=== PATIENT | male | born 1950 | race Caucasian/White ===

== ENCOUNTER 2017-01-05 09:19 | Emergency (ER) | payer OTHER ==
[2017-01-05] MEDS ORDERED: KETOROLAC 60 MG/2 ML VIAL IM STA (10:23)
[2017-01-05] MEDS ORDERED: diazePAM 5 MG TABLET PO STA (10:23)
[2017-01-05] MEDS ORDERED: LIDOCAINE PATCH 5% TOP STA (10:23)
--- NOTE | 2017-01-05 10:27 | ED Physician Documentation ---
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 and felt a tearing sensation to the R SI region and has had sig pain and dec mobility since no fever no IVDA IV/IM meds no abd pain no urinary sx no numbness or weakness tried asa s relief needed help getting dressed Review of Systems Constitutional: denies: Fever, Chills Cardiac: denies: Chest pain / pressure Respiratory: denies: Dyspnea GI: denies: Abdominal Pain : denies: Dysuria, Incontinent Musculoskeletal: reports: Back pain Neurologic: denies: Focal weakness, Numbness Immunocompromised: denies: Immunocompromised PD PAST MEDICAL HISTORY - Past Medical History Past Medical History: Yes Cardiovascular: Hypertension, High cholesterol Respiratory: None Neuro: None Endocrine/Autoimmune: None GI: None : None HEENT: None Psych: None Musculoskeletal: Chronic back pain, Other Derm: None - Past Surgical History Past Surgical History: Yes General: Colonoscopy Ortho: Other - Present Medications Home Medications: Ambulatory Orders Medication Instructions Recorded Confirmed Aspirin [Aspir 81] 81 mg PO DAILY 09/10/12 01/05/17 Simvastatin [Zocor] 20 mg PO QPM 09/10/12 01/05/17 Metoprolol Tartrate 50 mg PO BID 07/29/15 01/05/17 Lisinopril 20 mg PO DAILY 08/01/15 01/05/17 Lidocaine Patch 5% [Lidoderm Patch] 1 each TOP DAILY PRN #10 patch 01/05/17 diazePAM [Valium] 5 mg PO Q8H PRN #10 tablet 01/05/17 - Allergies Allergies/Adverse Reactions: Allergies Allergy/AdvReac Type Severity Reaction Status Date / Time acetaminophen [From Percocet] AdvReac constipatio Verified 07/30/15 01:41 n oxycodone HCl * AdvReac constipatio Verified 09/10/12 13:45 [From Percocet] n - Social History Does the pt smoke?: No Smoking Status: Never smoker Does the pt drink ETOH?: Yes Does the pt have substance abuse?: No - POLST Patient has POLST: No PD ED PE NORMAL - Vitals Vital signs reviewed: Yes - General General: Alert and oriented X 3 - Neck Neck: Supple, no meningeal sign - Cardiac Cardiac: RRR - Respiratory Respiratory: No respiratory distress, Clear bilaterally - Abdomen Abdomen: Soft, Non tender, Other (no pulsatile mass) - Back Back: No spinal TTP (nor redness warmth of focal swelling, limited ROM 2/2 and muscular spasm) - Derm Derm: Normal color - Extremities Extremities: No deformity - Neuro Neuro: No motor deficit, No sensory deficit, Other (hip flex foot dorsi pknatar and great toe ext 5/5, diff to assess knee ext 2/2 pain, no no radicular pain by hx, patellar DTR 1+/4, no clonus, denies saddle anesthesia) Results - Vitals Vitals: Vital Signs - 24 hr 01/05/17 09:26 Temperature 36.5 C Heart Rate 69 Respiratory 17 Rate Blood Pressure 166/89 H O2 Saturation 98 Oxygen O2 Source Room air Departure - Departure Disposition: 01 Home, Self Care Clinical Impression: Back pain Qualifiers: Back pain location: low back pain Chronicity: acute Back pain laterality: unspecified Sciatica presence: without sciatica Qualified Code(s): M54.5 - Low back pain Condition: Good Instructions: ED Low Back Pain Injury Follow-Up: Jose Ramon Tobias MD [Primary Care Provider] - Prescriptions: Lidocaine Patch 5% [Lidoderm Patch] 1 each TOP DAILY PRN #10 patch PRN Reason: Pain diazePAM [Valium] 5 mg PO Q8H PRN #10 tablet PRN Reason: muscle spasm Comments: The xrays show the hardware is fine. There is slight wedging of the T12 vertebrae but this is not where you hurt and is likely not new Xrays do not show herniated disks but the symptoms and exam do not suggest a herniated disk. The treatment at this time is mostly symptomatic - recommend lidocaine patches - up to 12 hr a day - for pain. And the valium to relax your muscles. If it does not bother your stomach, you could also take 200-400 mg of food with meals three times a day for the pain. Tylenol, up to 3000mg a day will help too. Please rest and avoid heavy exertion and lifting Follow up with your PMD Return if worse And please have your PMD recheck your blood pressure - it was high today
[2017-01-05] MEDS ORDERED: diazePAM 5 MG TABLET PO ONE (10:34)
[2017-01-05] MEDS ORDERED: LIDOCAINE PATCH 5% TOP ONE (10:35)
[2017-01-05] MEDS ORDERED: KETOROLAC 30 MG/ML VIAL ONE (10:35)
--- NOTE | 2017-01-05 11:41 | XRAY Preliminary Report ---
Exam: XR Lumbar Spine 2 View IMPRESSION: 1. Mild anterior wedging and superior endplate irregularity of the T12 vertebral body, suggestive of age-indeterminate fracture. No significant vertebral body loss of height. 2. L4-L5 posterior fusion hardware is in place. There is no evidence of hardware dysfunction. [facility] SITE ID: [id number]
--- NOTE | 2017-01-05 11:43 | XRAY Report ---
EXAM: LUMBOSACRAL SPINE RADIOGRAPHY EXAM DATE: 01/05/2017 10:58 AM. CLINICAL HISTORY: Back pain prior fusion assess hardware. COMPARISONS: None. TECHNIQUE: 2 views. FINDINGS: Alignment: L4-L5 fusion hardware is in place. There is an intervertebral disk spacer. Alignment is wi thin normal limits. Bones: Mineralization within normal limits. There is mild superior endplate irregularity and anterior wedging of the T12 vertebral body. Disks: Normal. Disk heights are maintained. Facets: No significant facet arthrosis. Sacroiliac Joints: Unremarkable. Soft Tissues: Normal. The visualized bowel gas pattern is normal. IMPRESSION: 1. Mild anterior wedging and superior endplate irregularity of the T12 vertebral body, suggestive of age-indeterminate fracture. No significant vertebral body loss of height. 2. L4-L5 posterior fusion hardware is in place. There is no evidence of hardware dysfunction. [facility] Referring Provider Line: [phone] SITE ID: [id number]
[2017-01-05 12:12] VITALS: BP 155/74
== END 2017-01-05 12:33 | disposition home or self-care (01) ==
LOC: ED 09:19
DX: M54.5 Low back pain (principal); Z98.1 Arthrodesis status; I10 Essential (primary) hypertension; E78.00 Pure hypercholesterolemia, unspecified; Z79.82 Long term (current) use of aspirin
CPT/HCPCS: 72100; 96372; 99283; A9270

== ENCOUNTER 2018-04-03 07:40 | Day surgery (SDC) | payer MEDICARE, OTHER ==
[2018-04-03] MEDS ORDERED: LACTATED RINGERS 1,000 ML IV ONE (08:17)
[2018-04-03 09:51] VITALS: BP 107/55
[2018-04-03] MEDS ORDERED: MIDAZOLAM 2 MG/2 ML VIAL IVP ONE (10:00)
[2018-04-03] MEDS ORDERED: fentaNYL 250 MCG/5 ML VIAL IVP ONE (10:00)
== END 2018-04-03 07:41 | disposition home or self-care (01) ==
LOC: SDS 07:40
PROVIDERS: ATTEND Surgery
PROC: 0DJD8ZZ Inspection of Lower Intestinal Tract, Via Natural or Artificial Opening Endoscopic (ICD-10-PCS; principal; 2018-04-03 09:00)
DX: Z12.11 Encounter for screening for malignant neoplasm of colon (principal); K57.30 Diverticulosis of large intestine without perforation or abscess without bleeding; K64.8 Other hemorrhoids; I10 Essential (primary) hypertension; E66.9 Obesity, unspecified; Z79.899 Other long term (current) drug therapy; Z68.37 Body mass index [BMI] 37.0-37.9, adult
CPT/HCPCS: G0121; J7120

== ENCOUNTER 2019-05-18 07:03 | Outpatient (CLI) | payer MEDICARE, OTHER ==
[2019-05-18 10:20] LABS: HB2 TOTAL 15.2 g/dL; HEMOGLOBIN A1C 0.63 g/dL; HEMOGLOBIN A1C % 5.9 % (4.6-6.2)
[2019-05-18 10:24] LABS: BUN - BLOOD UREA NITROGEN 23 mg/dL (6-20); CALCIUM 9.5 mg/dL (8.5-10.3); CARBON DIOXIDE - CO2 23 mmol/L (21-32); CHLORIDE 105 mmol/L (101-111); CHOLESTEROL 150 mg/dL; CREATININE 0.9 mg/dL (0.6-1.2); GFR - MDRD 84 (>89); GLUCOSE 100 mg/dL (70-100); HDL CHOLESTEROL 50 mg/dL; LDL CHOLESTEROL,CALCULATED 85 mg/dL; LDL/HDL RATIO 1.7 (<3.6); SODIUM 137 mmol/L (135-145); VLDL CHOLESTEROL 15 mg/dL
[2019-05-19 10:41] LABS: HEPATITIS C ANTIBODY NON-REACTIVE (NON-REACTIVE)
== END 2019-05-18 07:04 | disposition home or self-care (01) ==
LOC: LAB.S 07:03
PROVIDERS: ATTEND Internal Medicine
DX: E78.5 Hyperlipidemia, unspecified (principal); I10 Essential (primary) hypertension; R73.01 Impaired fasting glucose; E66.9 Obesity, unspecified; Z11.59 Encounter for screening for other viral diseases
CPT/HCPCS: 36415; 80048; 80061; 83036; 83721; 86803

== ENCOUNTER 2020-05-06 07:06 | Outpatient (CLI) | payer MEDICARE, OTHER ==
[2020-05-06 15:24] LABS: BUN - BLOOD UREA NITROGEN 16 mg/dL (6-20); CALCIUM 9.5 mg/dL (8.5-10.3); CARBON DIOXIDE - CO2 24 mmol/L (21-32); CHLORIDE 102 mmol/L (101-111); CHOL/HDL RATIO 4.7 (<5.0); CHOLESTEROL 239 mg/dL; CREATININE 0.9 mg/dL (0.6-1.2); GLUCOSE 105 mg/dL (70-100); HDL CHOLESTEROL 51 mg/dL; LDL CHOLESTEROL,CALCULATED 158 mg/dL; LDL/HDL RATIO 3.1 (<3.6); SODIUM 135 mmol/L (135-145); VLDL CHOLESTEROL 30 mg/dL
== END 2020-05-06 07:07 | disposition home or self-care (01) ==
LOC: LAB.S 07:06
PROVIDERS: ATTEND Internal Medicine
DX: Z00.00 Encounter for general adult medical examination without abnormal findings (principal); E78.5 Hyperlipidemia, unspecified; I10 Essential (primary) hypertension; R73.01 Impaired fasting glucose; E66.9 Obesity, unspecified
CPT/HCPCS: 36415; 80048; 80061; 83721

== ENCOUNTER 2021-06-10 09:46 | Outpatient (CLI) | payer MEDICARE, OTHER ==
[2021-06-10 15:34] LABS: CALCIUM 9.4 mg/dL (8.5-10.3); CREATININE 0.9 mg/dL (0.6-1.2); POTASSIUM 4.3 mmol/L (3.5-5.0)
== END 2021-06-10 09:47 | disposition home or self-care (01) ==
LOC: LAB.S 09:46
PROVIDERS: ATTEND Internal Medicine
DX: I10 Essential (primary) hypertension (principal)
CPT/HCPCS: 36415; 80048